=== PATIENT | female | born 1985 | race American Indian/Alaskan Native ===

== ENCOUNTER 2021-05-17 17:23 | Emergency (ER) | payer SELFPAY ==
[2021-05-17] MEDS ORDERED: oxyCODONE 5 MG Tab PO ONE (17:48)
== END 2021-05-17 19:52 | disposition home or self-care (01) ==
LOC: DL.ED 17:23
DX: L03.011 Cellulitis of right finger (principal); S62.634K Displaced fracture of distal phalanx of right ring finger, subsequent encounter for fracture with nonunion; Z88.8 Allergy status to other drugs, medicaments and biological substances; Z88.1 Allergy status to other antibiotic agents; W23.0XXD Caught, crushed, jammed, or pinched between moving objects, subsequent encounter
CPT/HCPCS: 73140-F8; 96365; 96366; 99283-25; A9270-GY; J3370; J7040

== ENCOUNTER 2023-03-21 16:25 | Emergency (ER) | payer SELFPAY ==
[2023-03-21] MEDS ORDERED: LORazepam 0.5 MG Tab PO ONE (16:57)
== END 2023-03-21 17:05 | disposition home or self-care (01) ==
LOC: DL.ED 16:25
DX: U07.1 COVID-19 (principal); F41.9 Anxiety disorder, unspecified; I10 Essential (primary) hypertension; E10.9 Type 1 diabetes mellitus without complications; Z88.8 Allergy status to other drugs, medicaments and biological substances
CPT/HCPCS: 99283; 99284; A9270-GY

== ENCOUNTER 2024-03-24 16:06 | Emergency (ER) | payer MEDICAID ==
[2024-03-24 17:03] LABS: APPEARANCE,URINE CLOUDY (CLEAR); BILIRUBIN,URINE NEGATIVE (NEGATIVE); COLOR,URINE DARK YELLOW (YELLOW); GLUCOSE,URINE >=1000 (NEGATIVE); KETONES,URINE 40 (NEGATIVE); LEUKOCYTE ESTERASE,URINE NEGATIVE (NEGATIVE); NITRITE,URINE NEGATIVE (NEGATIVE); OCCULT BLOOD,URINE TRACE-INTACT (NEGATIVE); PROTEIN,URINE 100 (NEGATIVE); UROBILINOGEN,URINE 0.2 mg/dL (0.2-1.0)
[2024-03-24] MEDS: Ketorolac 30 MG/ML SDV IM ONE (17:03)
[2024-03-24 17:10] LABS: AMORPHOUS SEDIMENT,URINE FEW /HPF (NOT SEEN); BACTERIA,URINE FEW /HPF (0-FEW/HPF); EPITHELIAL CELLS,URINE MODERATE /HPF (NOT SEEN); MUCUS,URINE MODERATE /LPF (NOT SEEN); RBC,URINE 0-5 /HPF (0-5); WBC,URINE 0-5 /HPF (0-5/HPF)
[2024-03-24 17:31] LABS: BASOPHILS PERCENT AUTO 0.2 % (0.0-1.0); EOSINOPHILS PERCENT AUTO 0.5 % (1.0-3.0); HEMATOCRIT 36.7 % (37.0-47.0); HEMOGLOBIN 11.7 g/dL (12.0-16.0); MEAN CORPUSCULAR HEMOGLOBIN 24.7 pg (27.0-34.0); MEAN CORPUSCULAR HGB CONC 31.9 g/dL (33.0-35.0); MEAN CORPUSCULAR VOLUME 77.4 fL (80-100); MONOCYTES PERCENT AUTO 8.3 % (2-8); PLATELET COUNT,PLT 313 10^3/uL (150-450); RED BLOOD CELL COUNT 4.74 10^6/uL (4.2-5.4); WHITE BLOOD CELL COUNT,WBC 10.2 10^3/uL (5.0-10.0)
[2024-03-24 17:50] LABS: ASPARTATE AMNIOTRANSFERASE,AST 18 U/L (15-37); BILIRUBIN TOTAL 1.6 mg/dL (0.2-1.0); BLOOD UREA NITROGEN,BUN 8 mg/dL (7-18); BUN/CREATININE RATIO 13.6 (No establ ref range); CALCIUM 8.9 mg/dL (8.5-10.1); CHLORIDE,CL 96 mmol/L (98-107); CREATININE 0.59 mg/dL (0.55-1.02); EST CRCL DRUG DOSING (CG) 118.66 mL/min; LIPASE 13 U/L (16-77); POTASSIUM,K 3.6 mmol/L (3.5-5.1); PROTEIN TOTAL,TP 8.1 g/dL (6.4-8.2); SODIUM,NA 134 mmol/L (136-145)
[2024-03-24 17:53] LABS: A/G RATIO 0.7; ALANINE AMINOTRANSFERASE,ALT 33 U/L (14-59); ALBUMIN 3.4 g/dL (3.4-5.0); ALKALINE PHOSPHATASE 139 U/L (46-116); ANION GAP 13.6 mEq/L (7-13); CARBON DIOXIDE,CO2 28 mmol/L (21-32); GLUCOSE RANDOM 268 mg/dL (70-99)
[2024-03-24 17:54] LABS: ESTIMATED GFR 117 mL/min (>=60); ETHANOL BLOOD MEDICAL < 3 mg/dL (0)
[2024-03-24] MEDS: LORazepam 1 MG Tab PO ONE (18:33)
== END 2024-03-24 18:52 | disposition home or self-care (01) ==
LOC: DL.ED 16:06
DX: R10.9 Unspecified abdominal pain (principal); F41.1 Generalized anxiety disorder; F32.89 Other specified depressive episodes; E11.42 Type 2 diabetes mellitus with diabetic polyneuropathy; I10 Essential (primary) hypertension; Z88.8 Allergy status to other drugs, medicaments and biological substances
CPT/HCPCS: 36415; 74018; 80053; 80307; 81001; 81025; 83690; 85025; 96372; 99284; A9270; J1885

== ENCOUNTER 2024-04-07 10:00 | Emergency (ER) | payer MEDICAID ==
[2024-04-07 10:43] LABS: AMPHETAMINES,URINE NEGATIVE (NEGATIVE); BARBITURATES,URINE NEGATIVE (NEGATIVE); BENZODIAZEPINE,URINE NEGATIVE (NEGATIVE); MDMA (ECSTASY), URINE NEGATIVE (NEGATIVE); METHADONE,URINE NEGATIVE (NEGATIVE); METHAMPHETAMINES,URINE NEGATIVE (NEGATIVE); OPIATES,URINE NEGATIVE (NEGATIVE); OXYCODONE,URINE NEGATIVE (NEGATIVE); PHENCYCLIDINE,URINE NEGATIVE (NEGATIVE); TCA,URINE NEGATIVE (NEGATIVE)
[2024-04-07] MEDS: LORazepam 1 MG Tab PO ONE (11:03)
[2024-04-07] MEDS: Pantoprazole 40 MG Tab.CR PO ONE (11:03)
[2024-04-07] MEDS: hydrOXYzine HCl 25 MG Tab PO ONE (11:03)
[2024-04-07] MEDS: Acetaminophen 500 MG Tab PO ONE (11:03)
[2024-04-07] MEDS: Ibuprofen 800 MG Tab PO ONE (11:03)
[2024-04-07 11:10] LABS: APPEARANCE,URINE SLIGHTLY CLOUDY (CLEAR); BILIRUBIN,URINE NEGATIVE (NEGATIVE); COLOR,URINE YELLOW (YELLOW); GLUCOSE,URINE 500 (NEGATIVE); KETONES,URINE 40 (NEGATIVE); LEUKOCYTE ESTERASE,URINE NEGATIVE (NEGATIVE); NITRITE,URINE NEGATIVE (NEGATIVE); OCCULT BLOOD,URINE TRACE-INTACT (NEGATIVE); PH,URINE 6.5 (5.0-9.0); PROTEIN,URINE >=300 (NEGATIVE); UROBILINOGEN,URINE 0.2 mg/dL (0.2-1.0)
[2024-04-07 11:20] LABS: AMORPHOUS SEDIMENT,URINE FEW /HPF (NOT SEEN); BACTERIA,URINE MODERATE /HPF (0-FEW/HPF); EPITHELIAL CELLS,URINE MODERATE /HPF (NOT SEEN); MUCUS,URINE MODERATE /LPF (NOT SEEN); RBC,URINE 0-5 /HPF (0-5)
[2024-04-07 11:45] LABS: O2 DELIVERY DEVICE ROOM AIR
[2024-04-07 11:46] LABS: BASOPHILS PERCENT AUTO 0.3 % (0.0-1.0); EOSINOPHILS PERCENT AUTO 0.3 % (1.0-3.0); HEMATOCRIT 36.5 % (37.0-47.0); HEMOGLOBIN 11.6 g/dL (12.0-16.0); MEAN CORPUSCULAR HEMOGLOBIN 24.7 pg (27.0-34.0); MEAN CORPUSCULAR HGB CONC 31.8 g/dL (33.0-35.0); MEAN CORPUSCULAR VOLUME 77.7 fL (80-100); MONOCYTES PERCENT AUTO 6.3 % (2-8); NEUTROPHILS PERCENT AUTO 76.1 % (42.2-75.2); PLATELET COUNT,PLT 419 10^3/uL (150-450); WHITE BLOOD CELL COUNT,WBC 14.8 10^3/uL (5.0-10.0)
[2024-04-07] MEDS: GI Cocktail Oral Solution 30 ML PO ONE (11:46)
[2024-04-07] MEDS: Sodium Chloride 0.9% 1,000 ML IV ONE (11:46)
[2024-04-07] MEDS: Ondansetron 4 MG/2 ML SDV IVPUSH ONE (11:46)
[2024-04-07 11:55] LABS: BASE EXCESS VENOUS 2.4 mmol/l ((-2)-(+3)); BICARBONATE,VENOUS 27 mmol/l (19-25); O2 SATURATION VENOUS 63.5 % (60-80); PCO2 VENOUS 41 mmHg (41-51); PH,VENOUS 7.42 (7.31-7.41); PO2 VENOUS 34 mmHg (35-42)
[2024-04-07 12:06] LABS: A/G RATIO 0.8; ALANINE AMINOTRANSFERASE,ALT 41 U/L (14-59); ALBUMIN 3.8 g/dL (3.4-5.0); ALKALINE PHOSPHATASE 146 U/L (46-116); ASPARTATE AMNIOTRANSFERASE,AST 23 U/L (15-37); BILIRUBIN TOTAL 0.9 mg/dL (0.2-1.0); BLOOD UREA NITROGEN,BUN 10 mg/dL (7-18); BUN/CREATININE RATIO 13.3 (No establ ref range); CALCIUM 9.3 mg/dL (8.5-10.1); CARBON DIOXIDE,CO2 25 mmol/L (21-32); CHLORIDE,CL 96 mmol/L (98-107); CREATININE 0.75 mg/dL (0.55-1.02); ESTIMATED GFR 103 mL/min (>=60); GLUCOSE RANDOM 299 mg/dL (70-99); PROTEIN TOTAL,TP 8.8 g/dL (6.4-8.2); SODIUM,NA 135 mmol/L (136-145)
[2024-04-07 12:12] LABS: KETONES,BLOOD NEGATIVE
== END 2024-04-07 14:05 | disposition home or self-care (01) ==
LOC: DL.ED 10:00
DX: F41.9 Anxiety disorder, unspecified (principal); M25.512 Pain in left shoulder; E11.65 Type 2 diabetes mellitus with hyperglycemia; I10 Essential (primary) hypertension; Z88.8 Allergy status to other drugs, medicaments and biological substances
CPT/HCPCS: 36415; 73030; 80053; 80305; 81001; 81025; 82009; 82803; 82947; 85025; 96361; 96374; 99283; A9270; J2405; J7030

== ENCOUNTER 2024-05-20 16:36 | Emergency (ER) | payer MEDICAID | END 2024-05-20 18:44 | disposition left against medical advice (07) | LOC: DL.ED 16:36 | DX: M25.512 Pain in left shoulder (principal); G89.29 Other chronic pain; I10 Essential (primary) hypertension; E11.9 Type 2 diabetes mellitus without complications; Z88.8 Allergy status to other drugs, medicaments and biological substances | CPT/HCPCS: 73030-LT; 99283 ==

== ENCOUNTER 2025-03-20 14:35 | Emergency (ER) | payer MEDICAID ==
[2025-03-20] MEDS: Dexamethasone 4 MG/ML SDV IM ONE (15:34)
== END 2025-03-20 15:37 | disposition home or self-care (01) ==
LOC: DL.ED 14:35
DX: B85.0 Pediculosis due to Pediculus humanus capitis (principal); I10 Essential (primary) hypertension; E10.9 Type 1 diabetes mellitus without complications; Z88.8 Allergy status to other drugs, medicaments and biological substances
CPT/HCPCS: 99283